=== PATIENT | male | born 1945 | race Caucasian/White ===

== ENCOUNTER → 2018-10-22 09:47 | Outpatient (CLI) | payer MEDICARE ==
[2015-08-13 03:25] VITALS: BMI 29.5
[~2018-10-22 09:47] MED LIST: BAYER CHEWABLE81 MG PO; COREG25 MG PO; DIOVAN80 MG PO; HYDROCODON-ACE1 EAC7 PO; LIPITOR10 MG PO; PROTONIX40 MG PO
--- NOTE | 2018-10-26 11:18 | ST ---
PATIENT:FLAKO CAMPBELL MEDICAL RECORD: [id number] SEX: M LOCATION:[facility] ORDER #: ADMISSION DATE: 10/22/18 AGE OF PATIENT: 72 REFERRING PHYSICIAN: INTERPRETING PHYSICIAN: LISSA SPANGLER MD DATE OF SERVICE: 10/22/2018 PROCEDURE: Nuclear stress test. INDICATION: Coronary artery disease, peripheral vascular disease, hypertension, shortness of breath. He was exercised on standard Juan Manuel protocol for 7 minutes 30 seconds achieving greater than 85% max target heart rate response with 31 mCi of sestamibi injected at peak stress, 10 mCi were used previously for rest images. FINDINGS: Gated SPECT reveals a preserved ejection fraction of 64% with decreased thickening and brightening throughout the inferior segments. SPECT imaging Cardiolite was used as myocardial perfusion agent. There was a fixed perfusion defect inferiorly. This includes the basal, mid, apical inferior segments. There is no degree of reversibility. In fact, the defect improves with stress. The remaining segments have homogeneous uptake at rest and stress. OVERALL IMPRESSION: This is a stable nuclear stress test only showing a fixed perfusion defect inferiorly, improvement with stress. No ongoing ischemia and preserved ejection fraction. Continue medical management of the coronary artery disease and cardiac risk factors. TRANSINT:[id number] Voice Confirmation ID: [id number] DOCUMENT ID: [id number] LISSA SPANGLER MD at 1118 CC: [id number] DICTATION DATE: 10/22/18 1428 TRAVEL MONEY ADVISOR: 10/23/18 0019 DEP CLI 10/22/18 [id number] [place] [address]
== END | disposition home or self-care (01) ==
LOC: D.HCCARDIO 09:47
DX: I25.10 Atherosclerotic heart disease of native coronary artery without angina pectoris (principal)

== ENCOUNTER 2019-11-12 10:15 | Emergency (ER) | payer MEDICARE ==
[~2019-11-12] VITALS: Ht 198.1 cm; Wt 120.5 kg
[2019-11-12 10:22] VITALS: Ht 198.1 cm; Wt 120.5 kg
[2019-11-12 10:41] LABS: NITRITE NEGATIVE (NEGATIVE); SPECIFIC GRAVITY 1.015 (1.005-1.020)
[2019-11-12 10:42] LABS: BILIRUBIN NEGATIVE (NEGATIVE); GLUCOSE NEGATIVE (NEGATIVE); KETONE NEGATIVE (NEGATIVE); UROBILINOGEN NORMAL (NORMAL)
[2019-11-12 10:46] LABS: BACTERIA FEW /hpf (NEGATIVE); EPITHELIAL CELLS NSEEN /hpf (0-5); WHITE CELLS - URINE 0-5 /hpf (NEGATIVE)
[2019-11-12 10:48] LABS: BASOPHILS 0.2 % (0-2); EOSINOPHILS 0.1 % (0-7); HEMATOCRIT 43.5 % (42.0-54.0); HEMOGLOBIN 15.3 g/dL (13.5-17.5); IMMATURE GRANULOCYTES 0.3 % (0-5); LYMPHOCYTES 7.2 % (15-50); MCH 30.5 pg (26.0-34.0); MCHC 35.2 g/dL (31.0-37.0); MCV 86.7 fL (80.0-100.0); MEAN PLATELET VOLUME 10.5 fL (7.4-10.4); MONOCYTES 5.2 % (2-11); PLATELET COUNT 228 10x3/uL (130-400); RBC 5.02 10x6/uL (4.20-6.10); RDW 12.6 % (11.5-14.5); WBC 10.5 10x3/uL (4.8-10.8)
[2019-11-12 10:58] LABS: ANION GAP 14.6 mmol/L (8-16); CALCIUM 8.8 mg/dL (8.5-10.1); CARBON DIOXIDE 23.9 mmol/L (21.0-32.0); CREATININE - SERUM 1.5 mg/dL (0.6-1.3); POTASSIUM - SERUM 4.5 mmol/L (3.5-5.1)
[2019-11-12 11:04] LABS: ALBUMIN 3.8 g/dL (3.4-5.0); BILIRUBIN - TOTAL 0.81 mg/dL (0.2-1.3); PROTEIN - SERUM 7.1 g/dL (6.4-8.2)
[2019-11-12] MEDS ORDERED: HYDROCODON-ACE1 EA10 PO (11:37)
[2019-11-12] MEDS ORDERED: ZOFRAN ODT4 MG/UDTAB PO (11:37)
[2019-11-12] MEDS ORDERED: FLOMAX0.4 MG PO (11:37)
[2019-11-12 12:55] VITALS: BP 141/84
== END 2019-11-12 12:58 | disposition home or self-care (01) ==
LOC: D.ER 10:15
PROVIDERS: Family Medicine
DX: N13.2 Hydronephrosis with renal and ureteral calculous obstruction (principal); R31.9 Hematuria, unspecified; R10.9 Unspecified abdominal pain; I10 Essential (primary) hypertension; Z95.0 Presence of cardiac pacemaker